=== PATIENT | male | born 1995 | race Caucasian/White ===

== ENCOUNTER → 2020-01-24 | Outpatient (CLI) | payer BC ==
[~2020-01-24] MED LIST: ALBUTEROL IH; CIPRO 500MG TA500 MG PO; EPI EZ PEN1 MG/ML IM; FLAGYL500 MG PO; PHENERGAN 25 TA25 MG PO
== END ==
LOC: COL.RAD 12:33
DX: R94.5 Abnormal results of liver function studies (principal)

== ENCOUNTER 2020-04-23 09:19 | Emergency (ER) | payer BC ==
[~2020-04-23] VITALS: Ht 162.6 cm; Wt 65.5 kg
[2020-04-23 09:24] VITALS: TEMP 97.6
[2020-04-23 10:06] LABS: BASO # 0.1 (0.0-0.2); BASO % 0.8 % (0.0-2.0); EOS # 0.2 (0.0-0.7); EOS % 2.4 % (0-4.0); GRAN # 3.9 (1.4-6.5); GRAN % 53.1 % (42.2-75.2); HEMATOCRIT 44.4 % (42.0-52.0); HEMOGLOBIN 15.6 g/dl (13.5-18.0); LYMPH # 2.6 (1.2-3.4); LYMPH % 35.7 % (20.0-51.0); MEAN CELL VOLUME 89 fl (80.0-100.0); MEAN CORPUSCULAR HEMOGLOBIN 31 pg (27.0-31.0); MEAN CORPUSCULAR HGB CONC 35 g/dl (33.0-37.0); MEAN PLATELET VOLUME 11.1 fl (7.4-10.4); MONO # 0.6 (0.1-0.6); MONO % 7.7 % (1.7-9.3); PLATELET COUNT 203 K/mm3 (130-400)
[2020-04-23 10:20] LABS: ALANINE AMINOTRANSFERASE 49 U/L (4-49); ALBUMIN 4.5 gm/dL (3.5-5.0); ALKALINE PHOSPHATASE 81 U/L (50-136); ANION GAP 9 mmol/L (7-16); AST,SGOT 34 U/L (15-37); BILIRUBIN,TOTAL 0.4 mg/dL (0.0-1.0); BLOOD UREA NITROGEN 16 mg/dL (9-20); CALCIUM 9.8 mg/dL (8.4-10.2); CARBON DIOXIDE 27 mmol/L (22-30); CHLORIDE 100 mmol/L (98-107); CREATININE, serum 1.13 (0.66-1.25); GLUCOSE 100 mg/dL (74-106); LIPASE 382 U/L (23-300); POTASSIUM 4.2 mmol/L (3.4-5.0); PROTHROMBIN TIME 11.7 SECONDS (9.7-12.8); SODIUM 137 mmol/L (137-145); TOTAL PROTEIN 7.2 gm/dL (6.4-8.2)
[2020-04-23 10:23] LABS: PARTIAL THROMBOPLASTIN TIME 31.1 SECONDS (26.0-37.0)
[2020-04-23 10:31] LABS: TROPONIN-I < 0.012 ng/mL (0.000-0.035)
[2020-04-23] MEDS ORDERED: BENTYL 20MG20 MG/TAB PO (12:42)
[2020-04-23] MEDS ORDERED: TYLENOL 325MG325 MG PO (12:42)
[2020-04-23 13:15] VITALS: BP 122/68; PULSE 69
== END 2020-04-23 13:15 | disposition home or self-care (01) ==
LOC: COL.ER 09:19
PROVIDERS: Emergency Medicine
DX: K52.9 Noninfective gastroenteritis and colitis, unspecified (principal); K51.00 Ulcerative (chronic) pancolitis without complications; R74.8 Abnormal levels of other serum enzymes; Z88.1 Allergy status to other antibiotic agents; Z88.2 Allergy status to sulfonamides
CPT/HCPCS: Q9967

== ENCOUNTER 2020-05-21 14:44 | Outpatient (CLI) | payer BC ==
[2020-05-21] VITALS (8 sets, daily range): BP systolic 108–132; BP diastolic 55–85; PULSE 71–89; TEMP 98.2–98.9
[~2020-05-21] VITALS: Ht 160 cm; Wt 69.0 kg
[~2020-05-21 14:44] MED LIST changes: +BENTYL 20MG20 MG/TAB PO; +TYLENOL 325MG325 MG PO
[2020-05-21] MEDS ORDERED: LAMICTAL 100MG100 MG PO (15:01)
[2020-05-21] MEDS ORDERED: VITAMIN B COMPL1 SGL PO (15:01)
[2020-05-21] MEDS ORDERED: IMODIUM 2MG CAPS2 MG PO (15:01)
[2020-05-21] MEDS ORDERED: MASON NATURAL2000 IU PO (15:01)
[2020-05-21] MEDS ORDERED: BENTYL 10MG10 MG/CAP PO (15:02)
[2020-05-21] MEDS ORDERED: PHARMASSURE ZIN50 MG PO (15:02)
[2020-05-21] MEDS ORDERED: FISH OIL 1000MG1 CAP PO (15:03)
[2020-05-21] MEDS ORDERED: GLUCOSAMINE & C1 CA2 PO (15:03)
[2020-05-21] MEDS ORDERED: VALTREX 50500 MG/TAB PO (15:04)
[2020-05-21] MEDS ORDERED: ASPIRIN E.C. 8181 MG PO (15:04)
[2020-05-21] MEDS ORDERED: NICODERM C14 MG/PATC TD (15:05)
[2020-05-21] MEDS ORDERED: MOTRIN 400400 MG/TAB PO (15:05)
--- NOTE | 2020-05-21 17:13 | NUR ---
Pt tolerated infusion without issue. IV was DC'd with catheter intact. Pt escorted out to exit with steady gait.
== END 2020-05-21 18:24 | disposition home or self-care (01) ==
LOC: EUO 14:44
DX: U07.1 COVID-19 (principal)
CPT/HCPCS: J7050